=== PATIENT | female | born 1945 | race Caucasian/White ===

== ENCOUNTER 2022-05-21 18:27 | Emergency (ER) | payer MEDICARE ==
[~2022-05-21] VITALS: Ht 165.1 cm; Wt 55.8 kg
[2022-05-21] MEDS ORDERED: CLINDAMYCIN IV RTU IN D5W 900 MG/50 ML PIGGYBACK IV ONE (18:30)
[2022-05-21] MEDS ORDERED: HYDROCODONE/APAP 10/325MG TABLET PO ONE (18:30)
[2022-05-21] MEDS ORDERED: CEFTRIAXONE 1GM BAG (ER ONLY) 1 GM/50 ML PIGGYBACK IV ONE (18:30)
--- NOTE | 2022-05-21 18:30 | NUR ---
BIB C/O DOG BITE, LEFT HAND SUTURED IN [facility] YESTERDAY APPEARS INFECTED. PLACED ON BED, REDNESS NOTED AT AFFECTED AREA.
--- NOTE | 2022-05-21 18:35 | NUR ---
BLOOD DRAWN AND SENT TO LAB
[2022-05-21] MEDS ORDERED: HYDROCODONE/APAP 10/325MG TABLET ONE (18:40)
[2022-05-21] MEDS ORDERED: CLINDAMYCIN 900 MG/6 ML VIAL ONE (18:40)
[2022-05-21] MEDS ORDERED: CEFTRIAXONE 1GM BAG (ER ONLY) 50 ML IV ONE (18:40)
[2022-05-21] MEDS ORDERED: CLINDAMYCIN 600 MG in IV D5W 50 ML IV ONE (19:00)
[2022-05-21 19:25] LABS: CALCIUM, SERUM 8.9 mg/dL (8.5-10.1); CREATININE 1.2 mg/dL (0.6-1.3); POTASSIUM 4.1 mmol/L (3.5-5.1)
[2022-05-21] MEDS ORDERED: CLIN300C12 PO (20:15)
[2022-05-21] MEDS ORDERED: FLUC150T PO (20:15)
[2022-05-21 20:17] LABS: BASOPHILS % (AUTO) 0.4 % (0.0-2.0); EOSINOPHILS % (AUTO) 2.7 % (0.0-6.0); HEMATOCRIT 38 % (33-45); HEMOGLOBIN 12.4 g/dL (11.5-14.8); LYMPHOCYTES % (AUTO) 20.8 % (20.0-44.0); MEAN CORPUSCULAR HGB CONC 33 g/dl (31.0-36.0); MEAN CORPUSCULAR VOLUME 87 fL (82-100); MONOCYTES % (AUTO) 10.2 % (2.0-12.0); NEUTROPHILS # (AUTO) 6.2 K/uL (1.8-8.9); NEUTROPHILS % (AUTO) 65.9 % (43.0-81.0); PLATELET COUNT (AUTO) 263 K/uL (150-450); RED BLOOD CELL COUNT(AUTO) 4.32 MIL/uL (4.0-5.2); WHITE BLOOD COUNT (AUTO) 9.4 K/uL (4.3-11.0)
--- NOTE | 2022-05-21 20:20 | NUR ---
Patient discharged to home in stable condition. Written and verbal after care instructions given. Patient verbalizes understanding of instruction.
[2022-05-21 21:15] VITALS: BP 129/64
== END 2022-05-21 20:20 | disposition home or self-care (01) ==
LOC: ER 18:30
DX: L03.114 Cellulitis of left upper limb (principal); Z88.2 Allergy status to sulfonamides; Z88.8 Allergy status to other drugs, medicaments and biological substances; Z60.2 Problems related to living alone; Z79.899 Other long term (current) drug therapy
CPT/HCPCS: 99284; 96365; 96367; 29125; 73130; 85025; 80048; 36415; L3763; J3490; J7060 ×2; J0696